=== PATIENT | female | born 1950 ===

== ENCOUNTER 2024-05-02 01:05 | Inpatient (IN) | payer OTHER ==
[2024-05-02] VITALS (15 sets, daily range): BP systolic 130–192; BP diastolic 68–99
[~2024-05-02] VITALS: Ht 170.2 cm; Wt 85.6 kg
[2024-05-02] MEDS ORDERED: Ketorolac Tromethamine 15mg Vial IV ONE (01:40)
[2024-05-02 01:47] LABS: BASOPHILS ABSOLUTE AUTO 0.06 K/mm3 (0.00-0.23); BASOPHILS PERCENT AUTO 1 % (0-2); EOSINOPHILS ABSOLUTE AUTO 0.33 K/mm3 (0.00-0.68); EOSINOPHILS PERCENT AUTO 5 % (0-6); Hematocrit 42.6 % (33.0-51.0); Hemoglobin 14.2 g/dL (11.5-16.0); IMMATURE GRAN ABSOLUTE AUTO 0.02 K/mm3 (0.00-0.10); IMMATURE GRAN PERCENT AUTO 0 % (0-1); LYMPHOCYTES ABSOLUTE AUTO 1.26 K/mm3 (0.84-5.20); LYMPHOCYTES PERCENT AUTO 17 % (21-46); MONOCYTES ABSOLUTE AUTO 0.37 K/mm3 (0.16-1.47); MONOCYTES PERCENT AUTO 5 % (4-13); Mean Corpuscular HGB 27.7 pg (26.0-34.0); Mean Corpuscular HGB Conc 33.3 g/dL (31.5-36.5); Mean Corpuscular Volume 83 fL (80-100); Mean Platelet Volume 10.8 fL (9.1-12.4); NEUTROPHILS ABSOLUTE AUTO 5.25 K/mm3 (1.96-9.15); NEUTROPHILS PERCENT AUTO 72 % (41-73); Platelet Count 208 K/mm3 (150-400); RDW Coefficient Variation 13.4 % (11.7-14.2); RDW Standard Deviation 41.3 fL (35.1-46.3); Red Blood Cell Count 5.13 M/mm3 (3.80-5.20); White Blood Cell Count 7.29 K/mm3 (4.00-11.30)
[2024-05-02 02:05] LABS: Albumin, Blood 4.3 g/dL (3.4-5.0); Albumin/Globulin Ratio 1.2 (0.8-1.8); Bilirubin, Total 0.9 mg/dL (0.1-1.0); Bun/Creatinine Ratio 21.4 (12.0-20.0); Calcium, Blood 9.9 mg/dL (8.5-10.1); Creatinine, Blood 0.75 mg/dL (0.40-1.00); Globulin, Blood 3.7 g/dL (2.2-4.0); Potassium, Blood 3.8 mmol/L (3.5-5.5)
[2024-05-02 02:32] LABS: Source, Urine Clean Catch
[2024-05-02 02:44] LABS: Bilirubin, Urine Neg (Neg); Blood, Urine Neg (Neg); Glucose Qualitative, Urine Neg (Neg); Ketones, Urine Neg (Neg); Leukocyte Esterase, Urine 2+ (Neg); Nitrite, Urine Neg (Neg); Protein, Urine Neg (Neg); Specific Gravity, Urine 1.005 (1.003-1.022); Urobilinogen, Urine NORM (Normal)
[2024-05-02 02:52] LABS: Appearance, Urine Clear (Clear); Color, Urine Pale Yellow (P-Yellow)
[2024-05-02 02:53] LABS: Bacteria Few /hpf; Red Blood Cells, Urine Not Seen /hpf (0-2); Squamous Epithelial Cells Few /hpf (Few)
[2024-05-02] MEDS ORDERED: HYDROmorphone HCl/Pf 1MG SYR IV ONE (06:00)
[2024-05-02] MEDS ORDERED: Ampicillin Sod/Sulbactam Sod 3 GM in NS 100 ML IV SCH (06:00)
[2024-05-02] MEDS ORDERED: Lactated Ringer's 1,000 ML IV ONE (06:00)
[2024-05-02] MEDS ORDERED: Adipex-P37.5 M1 (08:28)
[2024-05-02] MEDS ORDERED: Ondansetron HCl 2 MG / ML 2ML Vial IV PRN (09:50)
[2024-05-02] MEDS ORDERED: Lactated Ringer's 1,000 ML IV SCH ×2 (09:50→10:40)
[2024-05-02] MEDS ORDERED: FentaNYL Citrate 50 MCG/ML 2 ML Injection IV PRN (09:50)
[2024-05-02] MEDS ORDERED: FentaNYL Citrate 50 MCG/ML 2 ML Injection ONE (10:13)
[2024-05-02] MEDS ORDERED: Sugammadex Sodium 200 MG/2ML SDV (100 MG/ML) ONE (10:13)
[2024-05-02] MEDS ORDERED: propofoL 20 ML IV ONE (10:13)
[2024-05-02] MEDS ORDERED: Ondansetron HCl 2 MG / ML 2ML Vial ONE (10:14)
[2024-05-02] MEDS ORDERED: Rocuronium Bromide 10 MG/ML 5ML Injection IV ONE (10:14)
[2024-05-02] MEDS ORDERED: Dexamethasone Sod Phos 10 MG/ML 1ML VIAL ONE (10:14)
--- NOTE | 2024-05-02 10:57 | NUR ---
TRANSFERRED TO DAY SURGERY PATIENT TAKEN TO DAYSURGERY @1055 [place].
[2024-05-02] MEDS ORDERED: Bupivacaine 0.5% HCl 5 MG/ML 30MLVIAL ONE (11:53)
[2024-05-02] MEDS ORDERED: HYDROmorphone HCl/Pf 1MG SYR ONE (13:28)
[2024-05-02] MEDS ORDERED: FLU VACC TS2024-25(6MOS UP)/PF 45 MCG/0.5 ML SYRINGE IM SCH (13:30)
[2024-05-02] MEDS ORDERED: HYDROcodone 5-APAP 325 TAB PO PRN (13:30)
[2024-05-02] MEDS ORDERED: Metoclopramide HCl 5MG / ML 2ML Vial ONE (14:00)
--- NOTE | 2024-05-02 14:27 | NUR ---
POST-OP PATIENT BACK TO ROOM @1430, X2 LAP SITES WITH GAUZE AND TEGADERM C/D/I. BAN DRAIN DRNG MODERATE S/S. PATIENT VSS, ON 3L NC, SATS 98%. REPORTS MININAL PAIN AT THIS TIME. CALL MADE TO SPOUSE TO NOTIFY.
--- NOTE | 2024-05-02 17:12 | NUR ---
SUMMARY PATIENT IS AOX4, SBA, POD0 LAP APPY.W/PERF AND BAN DRAIN PLACEMENT.DRAIN IS PATENT, DRNG IS MODERATE AMOUNT S/S FLUID. LAP SITES X2 WITH GAUZE AND TEGADERM SOME SMALL SPOTS AO S/S/ DRNG. PATIENT DENIES NAUSEA. MEDICATED FOR PAIN IN PACU, DESATS ON RA, CURRENTLY ON 3LNC. RIGHT AC IV INFILTRATED AND NEW ONE PLACED IN OPPOSING ARM. UP TO BATHROOM X1 TO VOID. ABLE TO SIP ON CL AND TOLERATES WELL. VSS, CALL LIGHT IN REACH.
[2024-05-02] MEDS ORDERED: NS 250 ML IV PRN (20:15)
[2024-05-03 00:03] VITALS: BP 156/72
[2024-05-03 03:52] VITALS: BP 148/71
--- NOTE | 2024-05-03 05:32 | NUR ---
SHIFT SUMMARY PT S/P APPENDECTOMY, PT HAS RESTED T/O THE NIGHT. TOLERATING PO INTAKE, AND VOIDING. BAN DRAIN WITH S/S DISCHARGE, MINIMAL OUTPUT. SURGICAL SITE WNL. IV ANTIBIOTICS PER ORDERS. VITALS STABLE. PLAN IS FOR DISCHARGE TODAY. BED IN LOWEST POSITION, CALL LIGHT WITHIN REACH.
[2024-05-03 07:33] VITALS: BP 152/74
[2024-05-03] MEDS ORDERED: Enoxaparin 40 MG/0.4 ML SYR SC SCH (09:00)
[2024-05-03 15:16] VITALS: BP 158/87
--- NOTE | 2024-05-03 18:29 | NUR ---
SUMMARY AOX4, IND, BAN PATENT,PURLENT MINIMAL DRNG. LAP SITES C/D/I. ABX T/O SHIFT. VOIDING AND PASSING GAS. NO BM TODAY, TOLERATES FULL LIQUID DIET. VSS, CALL LIGHT IN REACH.
[2024-05-03 19:11] VITALS: BP 163/80
[2024-05-04] VITALS (8 sets, daily range): BP systolic 140–175; BP diastolic 75–92
--- NOTE | 2024-05-04 04:13 | NUR ---
SHIFT SUMMARY MAXI WAS ALERT AND FULLY ORIENTED ON ASSESMENT AND INDEPENDENT IN THE ROOM. DRESSING TO LAP SITES C/D/I, PURULENT LOOKING DRAINIAGE TO BAN DRAIN. PT DENIES PAIN TONIGHT. NO ACUTE EVENTS NO NOTED CHANGES TO PT CONDITION.
[2024-05-04 06:25] LABS: BASOPHILS ABSOLUTE AUTO 0.05 K/mm3 (0.00-0.23); BASOPHILS PERCENT AUTO 1 % (0-2); EOSINOPHILS ABSOLUTE AUTO 0.28 K/mm3 (0.00-0.68); EOSINOPHILS PERCENT AUTO 3 % (0-6); Hemoglobin 11.6 g/dL (11.5-16.0); IMMATURE GRAN ABSOLUTE AUTO 0.03 K/mm3 (0.00-0.10); IMMATURE GRAN PERCENT AUTO 0 % (0-1); LYMPHOCYTES ABSOLUTE AUTO 0.89 K/mm3 (0.84-5.20); LYMPHOCYTES PERCENT AUTO 11 % (21-46); MONOCYTES ABSOLUTE AUTO 0.61 K/mm3 (0.16-1.47); MONOCYTES PERCENT AUTO 7 % (4-13); Mean Corpuscular HGB 27.6 pg (26.0-34.0); Mean Corpuscular HGB Conc 33.1 g/dL (31.5-36.5); Mean Corpuscular Volume 83 fL (80-100); Mean Platelet Volume 10.7 fL (9.1-12.4); NEUTROPHILS ABSOLUTE AUTO 6.35 K/mm3 (1.96-9.15); NEUTROPHILS PERCENT AUTO 77 % (41-73); Platelet Count 196 K/mm3 (150-400); RDW Coefficient Variation 13.5 % (11.7-14.2); RDW Standard Deviation 41.5 fL (35.1-46.3); Red Blood Cell Count 4.21 M/mm3 (3.80-5.20); White Blood Cell Count 8.21 K/mm3 (4.00-11.30)
[2024-05-04] MEDS ORDERED: Polyethylene Glycol 3350 17 gm PO PRN (08:55)
--- NOTE | 2024-05-04 13:07 | NUR ---
UPDATE @1230 PATIENT REPORTS DIZZINESS, LIGHTHEADED AND SHORT OF BREATH. VITALS CHECKED HR ON MONITOR SHOWED 30S UP TO 100S. SPO2 98 ON RA, LUNGS SOUNDS CLEAR BUT DIM. BP 140/75. CLOTHES IRONER NOTIIFED SODER, ORDER FOR EKG, AND LABS, HOSPITALIST CONSULT. DR. GROSSMAN CALLED AND ORDERS FOR TELE AND ORTHOSTATICS PLACED.
[2024-05-04 13:42] LABS: BASOPHILS ABSOLUTE AUTO 0.05 K/mm3 (0.00-0.23); BASOPHILS PERCENT AUTO 1 % (0-2); EOSINOPHILS ABSOLUTE AUTO 0.25 K/mm3 (0.00-0.68); EOSINOPHILS PERCENT AUTO 3 % (0-6); Hematocrit 40.3 % (33.0-51.0); Hemoglobin 13.2 g/dL (11.5-16.0); IMMATURE GRAN ABSOLUTE AUTO 0.03 K/mm3 (0.00-0.10); IMMATURE GRAN PERCENT AUTO 0 % (0-1); LYMPHOCYTES ABSOLUTE AUTO 0.89 K/mm3 (0.84-5.20); LYMPHOCYTES PERCENT AUTO 12 % (21-46); MONOCYTES ABSOLUTE AUTO 0.53 K/mm3 (0.16-1.47); MONOCYTES PERCENT AUTO 7 % (4-13); Mean Corpuscular HGB 27.4 pg (26.0-34.0); Mean Corpuscular HGB Conc 32.8 g/dL (31.5-36.5); Mean Corpuscular Volume 84 fL (80-100); Mean Platelet Volume 10.6 fL (9.1-12.4); NEUTROPHILS ABSOLUTE AUTO 5.96 K/mm3 (1.96-9.15); NEUTROPHILS PERCENT AUTO 77 % (41-73); Platelet Count 227 K/mm3 (150-400); RDW Coefficient Variation 13.5 % (11.7-14.2); RDW Standard Deviation 41.7 fL (35.1-46.3); Red Blood Cell Count 4.81 M/mm3 (3.80-5.20); White Blood Cell Count 7.71 K/mm3 (4.00-11.30)
[2024-05-04 14:02] LABS: Albumin/Globulin Ratio 0.7 (0.8-1.8); Bilirubin, Total 0.6 mg/dL (0.1-1.0); Bun/Creatinine Ratio 15.8 (12.0-20.0); Calcium, Blood 9.1 mg/dL (8.5-10.1); Creatinine, Blood 0.57 mg/dL (0.40-1.00); Globulin, Blood 4.1 g/dL (2.2-4.0); Potassium, Blood 3.8 mmol/L (3.5-5.5); Total Protein, Blood 7.1 g/dL (6.4-8.2)
[2024-05-04] MEDS ORDERED: Lactated Ringer's 1,000 ML IV SCH (14:15)
[2024-05-04] MEDS ORDERED: Ondansetron HCl 2 MG / ML 2ML Vial IV PRN (14:15)
[2024-05-04] MEDS ORDERED: FentaNYL Citrate 50 MCG/ML 2 ML Injection IV PRN (14:15)
[2024-05-04] MEDS ORDERED: FLU VACC TS2024-25(6MOS UP)/PF 45 MCG/0.5 ML SYRINGE IM PRN (14:20)
[2024-05-04] MEDS ORDERED: HYDROcodone 5-APAP 325 TAB PO PRN (14:20)
[2024-05-04] MEDS ORDERED: Sodium Phosphate 30 MM in Dextrose 5% 500 ML IV STA (14:35)
[2024-05-04] MEDS ORDERED: Furosemide 10 MG / ML 2ML Vial IV ONE (17:00)
[2024-05-04] MEDS ORDERED: Potassium Phos/Sodium Phos 250 MG PACK PO SCH (17:00)
[2024-05-04 17:46] LABS: Influenza A, PCR NEGATIVE (NEGATIVE); Influenza B, PCR NEGATIVE (NEGATIVE); Resp Syncytial Virus, PCR NEGATIVE (NEGATIVE); SARS-Cov-2 (COVID-19) PCR, MMC NEGATIVE (NEGATIVE)
--- NOTE | 2024-05-04 18:22 | NUR ---
UPDATELASIX GIVEN AND PATIENT VOIDING, 70O OUT THIS EVEVING, LUNGS SOUNDS CLEAR UPPER, AND DIM IN BASES. PATIENT STATES SHE 'BREATHES BETTER'. STILL USING IS AT BEDSIDE. AND ENCOURAGING DEEP BREATHING AND COUGH
[2024-05-04] MEDS ORDERED: Docusate Sodium 100 MG Cap PO SCH (21:00)
[2024-05-05 04:03] VITALS: BP 158/80
--- NOTE | 2024-05-05 04:54 | NUR ---
SHIFT SUMMARY MAXI WAS ALERT AND FULLY ORIENTED ON ASSESMENT. PAIN WELL CONTROLLED. LAP SITES C/D/I. BAN OUTPUTTING S/S. PT AMBULATING TO BSC INDEPENDENTLY. NO ALERTS FROM TELE TONIGHT. PT PASSING FLATUS, NO BM. NO ACUTE EVENTS THIS SHIFT NO NOTED CHANGES TO PT CONDITION.
[2024-05-05 07:11] VITALS: BP 148/94
[2024-05-05 09:34] VITALS: BP 145/71
[2024-05-05 10:10] LABS: Anion Gap 10 mmol/L (3-11); Blood Urea Nitrogen 6 mg/dL (8-24); Bun/Creatinine Ratio 11.1 (12.0-20.0); CO2, Blood 28 mmol/L (21-32); Calcium, Blood 9.2 mg/dL (8.5-10.1); Chloride, Blood 104 mmol/L (98-108); Creatinine, Blood 0.54 mg/dL (0.40-1.00); Glomerular Filtration Rate 97 (60-); Glucose, Blood 133 mg/dL (70-99); Phosphorus, Blood 2.7 mg/dL (2.5-4.9); Potassium, Blood 3.6 mmol/L (3.5-5.5); Sodium, Blood 138 mmol/L (136-145)
[2024-05-05 14:12] VITALS: BP 135/70
[2024-05-05] MEDS ORDERED: DOCU100 PO (14:57)
[2024-05-05] MEDS ORDERED: METO25ER PO (14:58)
[2024-05-05] MEDS ORDERED: Metoprolol Succinate 25 MG TABCR PO SCH (15:00)
[2024-05-05] MEDS ORDERED: Potassium Chloride 10 Meq Tablet SA PO ONE (15:00)
[2024-05-05] MEDS ORDERED: PHOS-NAK PO (15:03)
--- NOTE | 2024-05-05 16:15 | NUR ---
DISCHARGE: PT IS HAVING NO CP, DIZZINESS, SOB. VSS. SURGICAL SITES WNL. PER DR. MANCUSO AND DR. CHAUNCEY CHIRINOS FOR DC. PACKET PRINTED AND PT EDUCATED. PT VERBALIZED UNDERSTANDING. PT LEFT UNIT VIA WHEELCHAIR AT ABOUT 1600 WITH NANO [place]
== END 2024-05-05 15:54 | disposition home or self-care (01) | DRG 399 ==
LOC: ER 01:05 → SURS 01:06 → ER 01:06 → SURS 01:06 → ERHOLD 05:53 → SURS 05:53 → ER 05:53 → SURS 05:53 → ERHOLD 08:17 → SURS 08:17 → ER 13:27 → SURS 13:27
PROVIDERS: Internal Medicine; Student in an Organized Health Care Education/Training Program; ADMIT Surgery
PROC: 0DTJ4ZZ Resection of Appendix, Percutaneous Endoscopic Approach (ICD-10-PCS; principal; 2024-05-02 11:30)
DX: K35.33 Acute appendicitis with perforation, localized peritonitis, and gangrene, with abscess (principal); I49.3 Ventricular premature depolarization; K38.1 Appendicular concretions; E89.0 Postprocedural hypothyroidism; Z88.2 Allergy status to sulfonamides; Z79.890 Hormone replacement therapy; Z11.52 Encounter for screening for COVID-19
CPT/HCPCS: 0241U; 36415; 71045; 74177; 80053; 80069; 81001; 83690; 83735; 83880; 84100; 84443; 84484; 85025; 87086; 88304; 93005; 93010; 93306; 96372; 96374; 96374-59; 96375; 96376; 99285-25; A9270; G0378; J0295; J1100; J1171; J1650; J1885; J1940; J2405; J2704; J2765; J3010; J7120; Q9967